=== PATIENT | male | born 1960 | race American Indian/Alaskan Native ===

== ENCOUNTER 2017-04-14 11:48 | Day surgery (SDC) | payer BC ==
--- NOTE | 2017-04-14 12:42 | Anesthesia Day of Surgery ---
Anesthesia Day of Surgery - Day of Surgery Patient Examined: Yes Patient H&P Reviewed: Yes Patient is NPO: Yes
--- NOTE | 2017-04-14 12:43 | Anesthesia Consultation ---
Anesthesia Consult and Med Hx Date of service: 04/14/17 - Airway Anesthetic Teeth Evaluation: Good ROM Head & Neck: Adequate Mental/Hyoid Distance: Adequate Mallampati Class: Class II Intubation Access Assessment: Probably Good - Pulmonary Exam CTA: Yes - Cardiac Exam Cardiac Exam: RRR - Pre-Operative Health Status ASA Pre-Surgery Classification: ASA2, ASA3 Proposed Anesthetic Plan: General, MAC - Cardiovascular System Hx Hypertension: Yes - Gastrointestinal Hx Gastroesophageal Reflux Disease: Yes - Other Systems Hx Obesity: Yes
[2017-04-14] MEDS ORDERED: NACL 0.9% 1000 ML 1,000 ML IV SCH (13:00)
[2017-04-14] MEDS ORDERED: DIPRIVAN 10 MG/ML IV ONE ×2 (14:49)
[2017-04-14] MEDS ORDERED: XYLOCAINE MPF 2% ONE (15:02)
--- NOTE | 2017-04-14 15:47 | Operative Report ---
Operative Report Operative Report: Date of procedure: 04/14/2017 Procedure: Colonoscopy with multiple hot biopsy polypectomies and polyp ablations. Attending physician: Robinson Holloway MD [employer] Reservations: Robinson Holloway MD Indication: Patient is a 57-year-old male who presents with a history of recurrent anorectal discomfort and pain. Patient also has had constipation and blood in stool. This procedure is done to assess patient regarding the course of symptoms so that treatment may be directed based on the findings. Consent: Informed consent was obtained after advising the patient and family regarding nature of this procedure, its indications, potential benefits as well as possible complications including but not limited to bleeding perforation and adverse reaction to medication, infection as well as other cardiopulmonary complications. An informed written and verbal consent was then obtained after due opportunity was provided for questions and answers. Monitoring: Patient was monitored continuously with pulse oximetry and electrocardiographic recordings as well as blood pressure recordings. Vital signs remained stable throughout this procedure with no untoward events. Preoperative assessment: Patient was assessed immediately prior to this procedure for capacity to tolerate monitored anesthesia care and moderate sedation as well as general anesthesia. Patient's ASA classification is 2, Mallampati class is 2, Hyomental distance is 3. Instrument: HarQen video colonoscope Medications: Propofol given intravenously in divided doses. For details please refer to anesthesia records. Description of procedure: Patient was placed in the left lateral decubitus position after achieving sedation, a digital rectal examination was performed following which the colonoscope was introduced into the anal verge and advanced to the cecum which was identified by the cecal valve, the appendiceal orifice, as well as by the cecal strap and direct transillumination. The colonoscope was subsequently withdrawn with careful inspection of all mucosal surfaces. Patient tolerated this procedure well and was subsequently taken to the recovery room. The following findings were noted. Findings: Patient had perianal excoriations and small ulcers at the anal verge. Patient had multiple diminutive rectal polyps which were ablated. Patient also had multiple diminutive polyps measuring up to 8 mm in the sigmoid colon which were removed by hot biopsy polypectomy. The rest of the colonoscopy to the cecum was normal. Patient had internal hemorrhoids also noted close to the anal verge on the retroflex view. The hemorrhoids however did not appear significantly inflamed and did not appear to be some sufficiently large for patient to have hemorrhoidal band ligation. Impression: Multiple diminutive perianal/anal verge exoriations and ulcers. Multiple diminutive sigmoid colon polyp status post hot biopsy polypectomy Diminutive rectal polyp status post ablation Internal hemorrhoids which appeared clinically insignificant Plan: Follow pathology report High-fiber diet Daily sitz baths as needed Anusol HC suppositories daily. 5% lidocaine ointment applied per rectum every 6 hours as needed for local comfort measures. Refer to colorectal surgery for examination under anesthesia given the endoscopic findings and patient's recurrent complaints.
--- NOTE | 2017-04-14 15:48 | Discharge Summary ---
Short Stay Discharge Plan Activity: advance as tolerated Weight Bearing Status: Weight Bear as Tolerated Diet: regular Follow up with: IBETH FERNANDO MD [Primary Care Provider] - 7 Days
[2017-04-14 16:01] VITALS: BP 115/80
== END 2017-04-14 11:49 | disposition home or self-care (01) ==
LOC: GIO 11:48
PROVIDERS: ATTEND Internal Medicine Gastroenterology
DX: K62.1 Rectal polyp (principal); K63.5 Polyp of colon; K62.6 Ulcer of anus and rectum; K64.8 Other hemorrhoids; K21.9 Gastro-esophageal reflux disease without esophagitis; E78.00 Pure hypercholesterolemia, unspecified; I10 Essential (primary) hypertension; F41.9 Anxiety disorder, unspecified; E66.9 Obesity, unspecified; Z68.36 Body mass index [BMI] 36.0-36.9, adult; Z79.899 Other long term (current) drug therapy; Z72.89 Other problems related to lifestyle; Z82.49 Family history of ischemic heart disease and other diseases of the circulatory system; Z80.3 Family history of malignant neoplasm of breast
CPT/HCPCS: 45384; 45388; 88305; J2704; J7030